=== PATIENT | male | born 1965 | race African-American/Black ===

== ENCOUNTER 2021-04-21 10:26 | Emergency (ER) | payer MEDICAID ==
[~2021-04-21] VITALS: Ht 172.7 cm; Wt 79.4 kg
[2021-04-21 10:39] VITALS: BP 117/78
--- NOTE | 2021-04-21 10:48 | NUR ---
PT TAKEN TO BED 7. AMBULATED WITH USE OF CRUTCHES.
[2021-04-21] MEDS ORDERED: MORPHINE SULFATE 4 MG/ML SYR IM ONE (10:50)
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
--- NOTE | 2021-04-21 11:26 | NUR ---
PT AMBULATED TO RESTROOM
[2021-04-21 12:08] VITALS: BP 117/78
--- NOTE | 2021-04-21 12:08 | NUR ---
Patient discharged with v/s stable. Written and verbal after care instructions given and explained. Patient alert, oriented and verbalized understanding of instructions. Ambulatory with steady gait. All questions addressed prior to discharge. ID band removed. Patient advised to follow up with PMD. Opportunity to ask questions provided and answered.
== END 2021-04-21 12:08 | disposition home or self-care (01) ==
LOC: MED 10:26
DX: M25.512 Pain in left shoulder (principal); J45.909 Unspecified asthma, uncomplicated; E07.9 Disorder of thyroid, unspecified; Z98.890 Other specified postprocedural states
CPT/HCPCS: 96372; 99283; J2270